=== PATIENT | male | born 1950 | race Caucasian/White ===

== ENCOUNTER 2021-04-20 13:29 | Emergency (ER) | payer MEDICARE, OTHER ==
[2021-04-20 13:42] VITALS: BP 147/89; PULSE 70
[2021-04-20] MEDS: Bacitracin Oint 1 GM U/D Packet TOP ONE (15:42)
[2021-04-20] MEDS: Lidocaine 1% 30 ML SDV INJECT ONE (15:42)
--- NOTE | 2021-04-20 16:09 | EDM.PDOC ---
ED HPI GENERAL MEDICAL PROBLEM - General Chief Complaint: Upper Extremity Injury/Pain Stated Complaint: lacerations on two right fingers Time Seen by Provider: 04/20/21 15:00 Source of Information: Reports: Patient, RN, RN Notes Reviewed History Limitations: Reports: No Limitations - History of Present Illness INITIAL COMMENTS - FREE TEXT/NARRATIVE: Gavin is a 70 y/o male who presents to the ED via personal vehicle with complaints of lacerations to his left third and fourth digits. The patient reports he was using a mechanical log splitter to chop logs and sliced his fingers on the blade. He reports this incident occurred approximately 30 minutes prior to his arrival to this facility. He denies loss of motor or sensory function to the digits. He notes the bleeding is well controlled. He is unsure of his last tetanus vaccine. Right Hand Pain Score (Numeric/FACES): 4 - Related Data Allergies Allergy/AdvReac Type Severity Reaction Status Date / Time No Known Allergies Allergy Verified 06/18/16 13:14 Home Meds: Home Meds Aspirin 81 mg PO DAILY 04/20/21 [History] Metoprolol Succinate [Toprol XL] 25 mg PO DAILY 04/20/21 [History] Past Medical History Cardiovascular History: Reports: Afib, Hypertension Oncologic (Cancer) History: Reports: Prostate Social & Family History - Tobacco Use Tobacco Use Status *Q: Unknown Ever Used Tobacco - Caffeine Use Caffeine Use: Reports: Coffee - Recreational Drug Use Recreational Drug Use: No Review of Systems - Review of Systems Review Of Systems: Comprehensive ROS is negative, except as noted in HPI. ED EXAM, GENERAL - Physical Exam Exam: See Below Exam Limited By: No Limitations General Appearance: Alert, No Apparent Distress Eye Exam: Bilateral Eye: EOMI, Normal Inspection, PERRL (3mm) Ears: Normal External Exam, Hearing Grossly Normal Nose: Normal Inspection, Normal Mucosa, No Blood Throat/Mouth: Normal Inspection, Normal Oropharynx, Normal Voice, No Airway Compromise Head: Atraumatic, Normocephalic Neck: Normal Inspection, Supple, Non-Tender, Full Range of Motion Respiratory/Chest: No Respiratory Distress, Lungs Clear, Normal Breath Sounds, No Accessory Muscle Use, Chest Non-Tender Cardiovascular: Normal Peripheral Pulses, Regular Rate, Rhythm, No Edema, No Gallop, No JVD, No Murmur, No Rub Peripheral Pulses: 2+: Radial (L), Radial (R) GI/Abdominal: Normal Bowel Sounds, Soft, Non-Tender (Male) Exam: Deferred Rectal (Males) Exam: Deferred Back Exam: Normal Inspection, Full Range of Motion Extremities: Normal Range of Motion, Normal Capillary Refill, Arm Pain (1.5cm laceration to fourth digit, involving the nail; 1.5cm laceration to third digit ). No: Increased Warmth, Mottled, Pallor, Redness Neurological: Alert, Oriented, CN II-XII Intact, Normal Cognition, Normal Gait, Normal Reflexes, No Motor/Sensory Deficits Psychiatric: Normal Affect, Normal Mood Skin Exam: Warm, Dry, Normal Color, No Rash, Wound/Incision (See above). No: Cyanosis, Ecchymosis, Erythema, Jaundice, Mottled, Pallor, Petechiae ED TRAUMA EXTREMITY PROCEDURES - Laceration/Wound Repair Left Posterior Sides of Distal Digit - 4th (Ring) Lac/Wound Length In cm: 1.5 Appearance: Superficial, Linear, Clean Distal NVT: Neuro & Vascular Intact, No Tendon Injury, Other (Nail bed involvement) Anesthetic Type: Local Local Anesthesia - Lidocaine (Xylocaine): 1% Plain Local Anesthetic Volume: Other (8cc) Skin Prep: Chlorhexidine (Hibiciens), Saline, Sterile Drape Saline Irrigation (cc's): 10 Exploration/Debridement/Repair: Wound Explored, In a Bloodless Field, Explored to Base, No Foreign Material Found, Wound Margins Revised Closed With: Sutures Suture Size: 4-0 # of Sutures: 3 Suture Type: Prolene, Interrupted, Simple Drain Placement: No Sterile Dressing Applied: Nurse Tetanus Status Addressed: Yes Complications: No Left Posterior Side Distal Digit - 3rd (Middle) Lac/Wound Length In cm: 1.5 Appearance: Superficial Distal NVT: Neuro & Vascular Intact, No Tendon Injury Anesthetic Type: Local Local Anesthesia - Lidocaine (Xylocaine): 1% Plain Local Anesthetic Volume: Other (6cc) Skin Prep: Chlorhexidine (Hibiciens), Saline, Sterile Drape Saline Irrigation (cc's): 10 Exploration/Debridement/Repair: Wound Explored, In a Bloodless Field, Explored to Base, No Foreign Material Found, Wound Margins Revised Closed With: Sutures Suture Size: 4-0 # of Sutures: 8 Suture Type: Prolene, Interrupted, Simple Drain Placement: No Sterile Dressing Applied: Nurse Tetanus Status Addressed: Yes Complications: No Course - Vital Signs Last Recorded V/S: Last Vital Signs Temp 97 F 04/20/21 13:38 Pulse 70 04/20/21 13:38 Resp 14 04/20/21 13:38 BP 147/89 H 04/20/21 13:38 Pulse Ox 98 04/20/21 13:38 - Orders/Labs/Meds Meds: Medications Discontinued Medications Generic Name Dose Route Start Last Admin Trade Name Shanelle PRN Reason Stop Dose Admin Bacitracin 1 dose 04/20/21 15:29 04/20/21 15:42 Bacitracin Oint 1 Gm U/D Packet TOP 04/20/21 15:30 1 dose ONETIME ONE Administration Lidocaine HCl 30 ml 04/20/21 15:28 04/20/21 15:42 Lidocaine 1% 30 Ml Sdv INJECT 04/20/21 15:29 10 ml ONETIME ONE Administration - Re-Assessments/Exams Free Text/Narrative Re-Assessment/Exam: 04/20/21 Lacerations to left fingers repaired without complication. Patient denies Boostrix at this time. Discussed supportive cares for lacerations as well as follow up with primary care for suture removal. Red flag signs and symptoms which would warrant reevaluation reviewed. Patient verbalized understanding and agreement with the plan of care. Departure - Departure Time of Disposition: 16:06 Disposition: Home, Self-Care 01 Condition: Good Clinical Impression: History of anticoagulant therapy Laceration of left middle finger Qualifiers: Encounter type: initial encounter Damage to nail status: without damage Foreign body presence: without foreign body Qualified Code(s): S61.213A - Laceration without foreign body of left middle finger without damage to nail, initial encounter Laceration of left index finger with damage to nail Qualifiers: Encounter type: initial encounter Foreign body presence: without foreign body Qualified Code(s): S61.311A - Laceration without foreign body of left index finger with damage to nail, initial encounter - Discharge Information *PRESCRIPTION DRUG MONITORING PROGRAM REVIEWED*: Not Applicable *COPY OF PRESCRIPTION DRUG MONITORING REPORT IN PATIENT TEODORA: Not Applicable Instructions: Laceration Care, Adult, [id number] Forms: ED Department Discharge Additional Instructions: 1.) You may present to any primary care facility for suture removal in seven days. 2.) Keep wounds clean and dry. You may keep the wound open to air as the drainage stops. 3.) Monitor for signs of infection, including redness, increased pain, or white/gomez drainage.
== END 2021-04-20 16:14 | disposition home or self-care (01) ==
LOC: DL.ED 13:29
DX: S61.213A Laceration without foreign body of left middle finger without damage to nail, initial encounter (principal); S61.315A Laceration without foreign body of left ring finger with damage to nail, initial encounter; I48.91 Unspecified atrial fibrillation; I10 Essential (primary) hypertension; Z79.82 Long term (current) use of aspirin; Z79.899 Other long term (current) drug therapy; Z79.01 Long term (current) use of anticoagulants; W26.8XXA Contact with other sharp object(s), not elsewhere classified, initial encounter
CPT/HCPCS: 12002; 99282-25